=== PATIENT | female | born 1965 | race American Indian/Alaskan Native ===

== ENCOUNTER 2019-12-18 21:24 | Inpatient (IN) ==
[2019-12-18] MEDS ORDERED: NS 0.9% 1000 ml BAG 1,000 ML IV ONE ×2 (21:28→23:52)
[2019-12-18] MEDS ORDERED: Prochlorperazine 5 mg/ml 2 ml VIAL (10 mg) IV ONE (21:29)
[2019-12-19 01:22] LABS: ABS Lymphocytes 1.1 10^3/ul (1.0-4.8); ABS Monocytes 0.6 10^3/ul (0-0.8); ABS Neutrophils 13.8 10^3/ul (1.5-7.7); Hematocrit 38 % (35-47); Hemoglobin 12.7 g/dL (12.0-16.0); Lymphocyte % 7.1 %; Mean Corpuscular HGB Conc 34 g/dL (31-36); Mean Corpuscular Hemoglobin 28 pg (27-31); Mean Corpuscular Volume 84 fL (80-97); Mean Platelet Volume 8.6 fL (7.4-10.4); Platelet Count 278 10^3/uL (150-450); Red Blood Count 4.49 10^6 /uL (3.70-4.87); Red Cell Distribution Width 15 % (10-15); White Blood Count 15.5 10^3/uL (3.5-10.8)
[2019-12-19 01:32] LABS: Urine Appearance Clear; Urine Bilirubin Negative (Negative); Urine Blood Negative (Negative); Urine Color Yellow; Urine Glucose Negative (Negative); Urine Ketones Negative (Negative); Urine Nitrite Negative (Negative); Urine Protein Negative (Negative); Urine Specific Gravity 1.014 (1.010-1.030); Urine Urobilinogen Negative (Negative)
[2019-12-19 01:39] LABS: Albumin 4.2 g/dL (3.2-5.2); Albumin/Globulin Ratio 1.9 (1-3); BUN/Creatinine Ratio 15.9 (8-20); Calcium 8.6 mg/dL (8.6-10.3); EGFR African American 87.3 (>60); EGFR Non-African American 72.1 (>60); Globulin 2.2 g/dL (2-4); Total Bilirubin 0.4 mg/dL (0.2-1.0); Total Protein 6.4 g/dL (6.4-8.9)
[2019-12-19] MEDS ORDERED: NS 0.9% 1000 ml BAG 1,000 ML IV SCH (02:30)
[2019-12-19] MEDS ORDERED: Enoxaparin 40 MG/0.4 ML SYR ONE (03:42)
[2019-12-19] MEDS: Ondansetron 4 mg VIAL 2 MG/ML 2 ml VIAL IV PRN ×3 (03:47→14:45)
[2019-12-19] MEDS: Enoxaparin 40 MG/0.4 ML SYR SUBCUT SCH ×2 (03:51→05:42)
[2019-12-19 07:41] LABS: HDL Cholesterol 36.2 mg/dL
[2019-12-19] MEDS ORDERED: Iohexol 350 (CONTRAST) 500 ML MDV IV ONE (09:41)
[2019-12-19] MEDS ORDERED: Metoclopramide 5 MG/ML VIAL (10 mg) IV PRN (10:44)
[2019-12-19] MEDS: NS 0.9% 1000 ml BAG 1,000 ML IV SCH ×2 (11:02→16:51)
[2019-12-19] MEDS ORDERED: methylPREDNISolone 125 mg 2 ML VIAL IV ONE (12:13)
[2019-12-19] MEDS ORDERED: methylPREDNISolone 125 mg 250 MG in NS 0.9% 100 ml BAG 100 ML IV ONE (13:00)
[2019-12-20] MEDS: Enoxaparin 40 MG/0.4 ML SYR SUBCUT SCH (05:27)
[2019-12-20 06:33] LABS: ABS Lymphocytes 1.2 10^3/ul (1.0-4.8); ABS Monocytes 0.5 10^3/ul (0-0.8); ABS Neutrophils 11.1 10^3/ul (1.5-7.7); Hematocrit 36 % (35-47); Hemoglobin 12.3 g/dL (12.0-16.0); Lymphocyte % 9.1 %; Mean Corpuscular HGB Conc 35 g/dL (31-36); Mean Corpuscular Hemoglobin 29 pg (27-31); Mean Corpuscular Volume 84 fL (80-97); Mean Platelet Volume 9.1 fL (7.4-10.4); Platelet Count 301 10^3/uL (150-450); Red Blood Count 4.26 10^6 /uL (3.70-4.87); Red Cell Distribution Width 14 % (10-15); White Blood Count 12.7 10^3/uL (3.5-10.8)
[2019-12-20 06:51] LABS: BUN/Creatinine Ratio 12.7 (8-20); EGFR African American 91.1 (>60); EGFR Non-African American 75.3 (>60); Potassium 3.9 mmol/L (3.5-5.0)
[2019-12-20] MEDS: NS 0.9% 1000 ml BAG 1,000 ML IV SCH ×2 (10:27→17:12)
[2019-12-20] MEDS ORDERED: methylPREDNISolone 125 mg 2 ML VIAL IV ONE (11:38)
[2019-12-21] MEDS: NS 0.9% 1000 ml BAG 1,000 ML IV SCH (00:55)
[2019-12-21] MEDS: Enoxaparin 40 MG/0.4 ML SYR SUBCUT SCH (05:09)
[2019-12-21 07:22] LABS: ABS Lymphocytes 2.4 10^3/ul (1.0-4.8); ABS Monocytes 0.8 10^3/ul (0-0.8); Hematocrit 32 % (35-47); Hemoglobin 11.3 g/dL (12.0-16.0); Lymphocyte % 15.7 %; Mean Corpuscular HGB Conc 35 g/dL (31-36); Mean Corpuscular Hemoglobin 29 pg (27-31); Mean Corpuscular Volume 83 fL (80-97); Mean Platelet Volume 9.5 fL (7.4-10.4); Platelet Count 244 10^3/uL (150-450); Red Blood Count 3.89 10^6 /uL (3.70-4.87); Red Cell Distribution Width 15 % (10-15); White Blood Count 15.3 10^3/uL (3.5-10.8)
[2019-12-21 11:47] VITALS: BP 148/76
== END 2019-12-21 16:10 | disposition home or self-care (01) | DRG 149 ==
LOC: ED 21:24 → MEDTELE 21:24 → OBSVTOIN 12-19 02:27 → INTOOBSV 12-19 02:27 → ED 12-19 02:51
PROVIDERS: ADMIT Internal Medicine; ATTEND Internal Medicine